=== PATIENT | female | born 1955 | race Caucasian/White ===

== ENCOUNTER 2017-05-20 18:06 | Observation (INO) | payer MEDICARE ==
[~2017-05-20] VITALS: Ht 165.1 cm; Wt 90.0 kg
[~2017-05-20 18:06] MED LIST: ABIL5TAB6 PO; ALBU6.7H INH; ALDA25TA PO; ALPR1 PO; ASPI81TA82 PO; ATOR40TA49 PO; BYST10TA2 PO; FISHOIL PO; FURO1TAB93 PO; HYDR-2768 PO; IRON325T2 PO; KEPRA PO; MONT10TA2 PO; MULTI VITAMIN; NAPR-573 PO; PRED5TAB PO; SPIRCAP INH; VENL75 PO; ZITH500T PO
[2017-05-20 18:11] VITALS: BP 128/61; PULSE 103; RESP 20; TEMP 98.7; O2SAT 95
[2017-05-20] MEDS ORDERED: SODIUM CHLOR 0.9% 1000 ML INJ 1,000 ML IV SCH (18:34)
--- NOTE | 2017-05-20 18:36 | PD ---
HPI Chief Complaint: General Weakness Time Seen by Provider: 18:36 Travel History International Travel<30 days: No Contact w/Intl Traveler<30days: No Traveled to known affect area: No History of Present Illness HPI 61-year-old female with a history of hypertension, hyperlipidemia, diabetes, CVA , COPD is brought to the emergency department by EMS for evaluation of frequent falls and weakness. The patient is lethargic but easily aroused and oriented to person and situation only. The patient states that she has had worsening weakness over the past 2-3 days. States that she has fallen several times because she is unable to stand due to the weakness. She states she did hit her head when she fell but denies loss of consciousness. She complains of mild shortness of breath as well. States that she's had a few episodes of nonbloody nonbilious emesis this morning and diarrhea. She complains of subjective fever today. Denies chest pain, lightheadedness, dizziness, abdominal pain, chills, cough or cold symptoms. Denies anticoagulation. Denies alcohol or drug use. No other complaints. PFSH Past Medical History Arthritis: Yes Asthma: Yes Anxiety: Yes Depression: No Heart Rhythm Problems: No Cancer: No Cardiovascular Problems: Yes High Cholesterol: No Chest Pain: Yes Congestive Heart Failure: No COPD: No Cerebrovascular Accident: No Endocrine: No GERD: Yes Genitourinary: No Hiatal Hernia: No Hypertension: Yes Immune Disorder: No Musculoskeletal: Yes Neurologic: Yes Psychiatric: No Reproductive: No Respiratory: Yes Migraines: No Seizures: Yes Sleep Apnea: No Triglycerides - High: Yes Ulcer: No Menopausal: Yes Past Surgical History Abdominal Surgery: No AICD: No Arteriovenous Shunt: No Cardiac Surgery: No Section: Yes (X 2) Ear Surgery: No Endocrine Surgery: No Eye Surgery: No Gynecologic Surgery: No Insulin Pump: No Joint Replacement: Yes (RT HIP) Oral Surgery: No Pacemaker: No Thoracic Surgery: No Social History Alcohol Use: Yes (OCC) Tobacco Use: No Substance Use: No Allergies-Medications (Allergen,Severity, Reaction): Coded Allergies: Dilantin (Verified Allergy, Intermediate, HIVES, 05/20/17) Reported Meds & Prescriptions Reported Meds & Active Scripts Active Active Prescriptions or Reported Medications Unobtainable Review of Systems Except as stated in HPI: all other systems reviewed are Neg Physical Exam Narrative GENERAL: Well-nourished and well-developed female patient in no acute distress. SKIN: Warm and dry. HEAD: Normocephalic and atraumatic. EYES: No injection, drainage, or hyphema noted. PERRLA. EOMI. ENT: No nasal drainage noted. Oropharynx is clear. NECK: Supple and the trachea is midline. CARDIOVASCULAR: Regular rate and rhythm. RESPIRATORY: Breath sounds are equal bilaterally with no accessory muscle use, wheezing, rhonchi, or crackles. GASTROINTESTINAL: Abdomen is soft, non-tender, and nondistended. MUSCULOSKELETAL: No obvious deformities, swelling, cyanosis, or ecchymosis is present throughout the upper and lower extremities. Patient has full range of motion without any signs of neurovascular compromise. Strength 5/5 upper extremities equal bilaterally and 4/5 lower extremities equal bilaterally. NEUROLOGICAL: Drowsy but easily aroused. Oriented to person. Normal speech. Cranial nerves are grossly intact. Data Data Last Documented VS Vital Signs Date Time Temp Pulse Resp B/P Pulse Ox O2 Delivery O2 Flow Rate FiO2 05/20/17 19:00 92 16 137/65 95 Room Air 05/20/17 18:38 2 05/20/17 18:11 98.7 Orders Complete Blood Count With Diff (05/20/17 18:34) Comprehensive Metabolic Panel (05/20/17 18:34) Prothrombin Time / Inr (Pt) (05/20/17 18:34) Act Partial Throm Time (Ptt) (05/20/17 18:34) Thyroid Stimulating Hormone (05/20/17 18:34) Urinalysis - C+S If Indicated (05/20/17 18:34) Lactic Acid Sepsis Protocol (05/20/17 18:34) Chest, Single Ap (05/20/17 18:34) Ct Brain W/O Iv Contrast(Rout) (05/20/17 18:34) Ecg Monitoring (05/20/17 18:34) Iv Access Insert/Monitor (05/20/17 18:34) Cath For Specimen (05/20/17 18:34) Oximetry (05/20/17 18:34) Sodium Chloride 0.9% Flush (Ns Flush) (05/20/17 18:45) Sodium Chlor 0.9% 1000 Ml Inj (Ns 1000 M (05/20/17 18:34) Drug Screen, Random Urine (05/20/17 18:34) Alcohol (Ethanol) (05/20/17 18:34) Urinary Catheter Insert/Apply (05/20/17 18:53) Urine Culture (05/20/17 18:55) Ceftriaxone Inj (Rocephin Inj) (05/20/17 19:45) Admit Order (Ed Use Only) (05/20/17 20:25) Labs Laboratory Tests Test 05/20/17 05/20/17 18:35 18:55 White Blood Count 10.1 TH/MM3 Red Blood Count 5.04 MIL/MM3 Hemoglobin 11.9 GM/DL Hematocrit 39.0 % Mean Corpuscular Volume 77.4 FL Mean Corpuscular Hemoglobin 23.6 PG Mean Corpuscular Hemoglobin 30.5 % Concent Red Cell Distribution Width 16.6 % Platelet Count 298 TH/MM3 Mean Platelet Volume 7.8 FL Neutrophils (%) (Auto) 68.0 % Lymphocytes (%) (Auto) 19.8 % Monocytes (%) (Auto) 6.5 % Eosinophils (%) (Auto) 4.4 % Basophils (%) (Auto) 1.3 % Neutrophils # (Auto) 6.8 TH/MM3 Lymphocytes # (Auto) 2.0 TH/MM3 Monocytes # (Auto) 0.7 TH/MM3 Eosinophils # (Auto) 0.4 TH/MM3 Basophils # (Auto) 0.1 TH/MM3 CBC Comment DIFF FINAL Differential Comment Prothrombin Time 10.1 SEC Prothromb Time International 0.9 RATIO Ratio Activated Partial 26.3 SEC Thromboplast Time Sodium Level 140 MEQ/L Potassium Level 4.0 MEQ/L Chloride Level 103 MEQ/L Carbon Dioxide Level 26.2 MEQ/L Anion Gap 11 MEQ/L Blood Urea Nitrogen 15 MG/DL Creatinine 1.22 MG/DL Estimat Glomerular Filtration 45 ML/MIN Rate Random Glucose 108 MG/DL Lactic Acid Level 3.3 mmol/L Calcium Level 8.3 MG/DL Total Bilirubin 0.3 MG/DL Aspartate Amino Transf 17 U/L (AST/SGOT) Alanine Aminotransferase 22 U/L (ALT/SGPT) Alkaline Phosphatase 96 U/L Total Protein 7.2 GM/DL Albumin 3.4 GM/DL Thyroid Stimulating Hormone 1.220 uIU/ML 3rd Gen Ethyl Alcohol Level LESS THAN 3 MG/DL Urine Color YELLOW Urine Turbidity HAZY Urine pH 8.0 Urine Specific [place] 1.011 Urine Protein TRACE mg/dL Urine Glucose (UA) NEG mg/dL Urine Ketones NEG mg/dL Urine Occult Blood NEG Urine Nitrite POS Urine Bilirubin NEG Urine Urobilinogen LESS THAN 2.0 MG/DL Urine Leukocyte Esterase LARGE Urine RBC 1 /hpf Urine WBC 27 /hpf Urine Bacteria MANY /hpf Urine Hyaline Casts 1 /lpf Urine Mucus FEW /lpf Microscopic Urinalysis Comment CATH-CULTURE IND MDM Medical Decision Making Medical Screen Exam Complete: Yes Emergency Medical Condition: Yes Differential Diagnosis Intracranial hemorrhage versus sepsis versus dehydration versus electrolyte abnormality versus CVA versus UTI Narrative Course 61-year-old female presents to the emergency department for evaluation of weakness with frequent falls over the past several days. Patient is afebrile, she is tachycardic with heart rate of 103 bpm. Otherwise vital signs within normal limits. No focal neurologic deficits. She does have weakness in the lower extremities that is equal bilaterally and is noted to be drowsy. IV access is obtained, labs and been drawn and sent. Patient is placed on cardiac telemetry and pulse oximetry monitoring. Patient is administered IV fluids. CBC is unremarkable. CMP shows renal insufficiency with a creatinine of 1.22, GFR 45. Lactic acid is 3.3. Urinalysis shows positive nitrites, large leukocyte esterase, 27 white blood cells, many bacteria and few mucus. Chest x-ray is unremarkable. Head CT is unremarkable. Patient is reassessed and noted to still be drowsy and weak. She is unable to ambulate safely. She is administered IV Rocephin and fluids. Patient will be kept in observation for urinary tract infection and weakness. She will likely need placement to a [facility]dc facility for rehab. Physician Communication Physician Communication I spoke with Dr. Luke [facility] who agrees to keep the patient under observation. Diagnosis Primary Impression: UTI (urinary tract infection) Qualified Code: N39.0 - Urinary tract infection without hematuria, site unspecified Additional Impressions: Generalized weakness Multiple falls Admitting Information Admitting Physician Requests: Observation Scripts Unable to Obtain Active Prescriptions or Reported Meds Sarah Good May 20, 2017 18:36
[2017-05-20 18:38] VITALS: BP 138/64; PULSE 99; O2SAT 98
[2017-05-20] MEDS ORDERED: SODIUM CHLORIDE 0.9% FLUSH 5 ML FLUSH IV FLUSH PRN (18:45)
[2017-05-20 19:00] VITALS: BP 137/65; PULSE 92; RESP 16; O2SAT 95
--- NOTE | 2017-05-20 19:03 | RADRPT ---
EXAM DATE/TIME: 05/20/2017 18:35 [facility] COMPARISON: CHEST SINGLE AP, August 12, 2013, 15:26. INDICATIONS : Syncope, patient keeps falling MEDICAL HISTORY : Unknown SURGICAL HISTORY : Unknown ENCOUNTER: Initial ACUITY: 1 day PAIN SCORE: 5/10 LOCATION: Bilateral chest FINDINGS: A single view of the chest demonstrates the lungs to be symmetrically aerated without evidence of mas s, infiltrate or effusion. The cardiomediastinal contours are unremarkable. Osseous structures are intact. CONCLUSION: No acute disease. Nirav Ortega Jr., MD on May 20, 2017 at 19:01 Board Certified Radiologist. This report was verified electronically.
[2017-05-20 19:10] LABS: AUTOMATED NEUTROPHIL # 6.8 TH/MM3 (1.8-7.7); BASOPHIL # 0.1 TH/MM3 (0-0.2); BASOPHIL % 1.3 % (0.0-2.0); EOSINOPHIL # 0.4 TH/MM3 (0-0.4); EOSINOPHIL % 4.4 % (0.0-4.0); HEMO FLAGS DIFF FINAL; LYMPH % 19.8 % (9.0-44.0); MEAN CELL VOLUME 77.4 FL (80.0-100.0); MEAN CORPUSCULAR HEMOGLOBIN 23.6 PG (27.0-34.0); MEAN CORPUSCULAR HGB CONC 30.5 % (32.0-36.0); MONO % 6.5 % (0.0-8.0); PLATELET COUNT 298 TH/MM3 (150-450); RED BLOOD COUNT 5.04 MIL/MM3 (4.00-5.30); RED CELL DISTRIBUTION WIDTH 16.6 % (11.6-17.2); WHITE BLOOD COUNT 10.1 TH/MM3 (4.0-11.0)
[2017-05-20 19:25] LABS: BACTERIA, URINE MANY /hpf; BLOOD, URINE NEG (NEG); GLUCOSE,URINE NEG (NEG); HYALINE CAST, URINE 1 /lpf (RARE); KETONE, URINE NEG (NEG); MUCUS URINE FEW /lpf (OCC); URINE COLOR YELLOW (YELLW/STRAW)
[2017-05-20 19:26] LABS: COMMENT (UR) CATH-CULTURE IND; CULTURE IF INDICATED CATH CULTURE IND; NITRITE,URINE POS (NEG)
[2017-05-20 19:28] LABS: ANION GAP 11 MEQ/L (5-15); AST (GOT) 17 U/L (15-37); BICARBONATE 26.2 MEQ/L (21.0-32.0); BLOOD UREA NITROGEN 15 MG/DL (7-18); CHLORIDE 103 MEQ/L (98-107); GLOMERULAR FILTRATION RATE 45 ML/MIN (>89); SODIUM (NA) 140 MEQ/L (136-145)
[2017-05-20 19:29] LABS: ALT (GPT) 22 U/L (10-53)
--- NOTE | 2017-05-20 19:30 | RADRPT ---
EXAM DATE/TIME: 05/20/2017 19:13 [facility] COMPARISON: CT BRAIN W/O CONTRAST, August 12, 2013, 16:20. INDICATIONS : Generalized weakness. RADIATION DOSE: 48.10 CTDIvol (mGy) MEDICAL HISTORY : Cardiovascular disease. Seizures. Hypertension. SURGICAL HISTORY : Spinal fusion ENCOUNTER: Initial ACUITY: 1 day PAIN SCALE: 0/10 LOCATION: cranial TECHNIQUE: Multiple contiguous axial images were obtained of the head. Using automated exposure control and adj ustment of the mA and/or kV according to patient size, radiation dose was kept as low as reasonably a chievable to obtain optimal diagnostic quality images. DICOM format image data is available electro nically for review and comparison. FINDINGS: CEREBRUM: Atrophy. The ventricles are normal for age. No evidence of midline shift, mass lesion, hemorrhage or acute infarction. No extra-axial fluid collections are seen. POSTERIOR FOSSA: The cerebellum and brainstem are intact. The 4th ventricle is midline. The cerebellopontine angle i s unremarkable. EXTRACRANIAL: The visualized portion of the orbits is intact. SKULL: The calvaria is intact. No evidence of skull fracture. CONCLUSION: No acute disease. Nirav Ortega Jr., MD on May 20, 2017 at 19:28 Board Certified Radiologist. This report was verified electronically.
[2017-05-20 19:39] LABS: ALKALINE PHOSPHATASE 96 U/L (45-117); TOTAL BILIRUBIN ADULT 0.3 MG/DL (0.2-1.0)
[2017-05-20] MEDS ORDERED: cefTRIAXone INJ 1,000 MG in SODIUM CHLORIDE 0.9% INJ 100 ML IV ONE (19:45)
[2017-05-20 19:58] LABS: APTT (PATIENT) 26.3 SEC (24.3-30.1); INTERNATIONAL NORMALIZED RATIO 0.9 RATIO; PROTHROMBIN TIME - PATIENT 10.1 SEC (9.8-11.6)
[2017-05-20] MEDS ORDERED: LACTULOSE SYRUP 20 GM/30 ML CUP PO PRN (20:45)
[2017-05-20] MEDS ORDERED: SENNOSIDES 8.6 MG TAB PO PRN (20:45)
[2017-05-20] MEDS ORDERED: MAGNESIUM HYDROXIDE SUSP 30 ML CUP PO PRN (20:45)
[2017-05-20] MEDS ORDERED: ACETAMINOPHEN 325 MG TAB PO PRN (20:45)
[2017-05-20] MEDS ORDERED: ONDANSETRON HCL 4 MG/2 ML VIAL IVP PRN (20:45)
[2017-05-20] MEDS ORDERED: ACETAMINOPHEN/HYDROcodone 325 MG/7.5 MG TAB PO PRN (20:45)
[2017-05-20] MEDS ORDERED: BISACODYL 10 MG SUPP RECTAL PRN (20:45)
[2017-05-20] MEDS ORDERED: SODIUM CHLORIDE 0.9% FLUSH 10 ML FLUSH IV FLUSH PRN (20:45)
[2017-05-20 20:55] LABS: LACTIC ACID GHOST NOT REPORTABLE
[2017-05-20] MEDS ORDERED: DOCUSATE SODIUM 50 MG/SENNA 8.6 MG TAB PO SCH (21:00)
[2017-05-20] MEDS: SODIUM CHLORIDE 0.9% FLUSH 10 ML FLUSH IV FLUSH SCH (21:00)
[2017-05-20] MEDS: SODIUM CHLOR 0.9% 1000 ML INJ 1,000 ML IV SCH (22:01)
[2017-05-20 23:00] VITALS: BP 125/58; PULSE 96; RESP 16; O2SAT 99
--- NOTE | 2017-05-20 23:32 | HHI.HP ---
HPI Service [facility] Primary Care Physician No Primary Care Physician Admission Diagnosis UTI, Generalized Weakness, Multiple Falls Diagnoses: (1) UTI (urinary tract infection) Diagnosis: Principal (2) Renal insufficiency Diagnosis: Principal (3) Lactic acidosis Diagnosis: Principal (4) Generalized weakness Diagnosis: Principal Travel History International Travel<30 Days: No Contact w/Intl Traveler <30 Da: No Traveled to Known Affected Are: No History of Present Illness This is a 61-year-old female with a PMH of HTN, Anxiety, Hyperlipidemia, COPD, DM and h/o CVA was brought to the ER by EMS secondary to generalized weakness and recurrent falls x2 days and is unable to ambulate. Denies LOC but believes she hit her head during one of her falls. No fever, chills, cough or sick contacts. On arrival, BP 128/61, HR 13, O2 sat 95% on RA, Afebrile. Creatinine 1.22, previously 0.90 on 08/14/13. Lactic Acid 3.3. UA positive for UTI. CXR with no acute findings. CT Head negative. S/p Rocephin IV in ER. Review of Systems Except as stated in HPI: all other systems reviewed are Neg ROS: 14 point review of systems otherwise negative. Past Family Social History Past Medical History PMH: HTN, Anxiety, Hyperlipidemia, COPD, DM and h/o CVA Past Surgical History PAST SURGICAL HISTORY: Right Hip Surgery, Allergies: Coded Allergies: Dilantin (Verified Allergy, Intermediate, HIVES, 05/20/17) Family History PAST FAMILY HISTORY: Reviewed. No h/o DM or CAD Social History PAST SOCIAL HISTORY: Occasional alcohol use, negative for tobacco or drugs. Physical Exam Vital Signs Vital Signs Date Time Temp Pulse Resp B/P Pulse Ox O2 Delivery O2 Flow Rate FiO2 05/20/17 19:00 92 16 137/65 95 Room Air 05/20/17 18:38 99 138/64 98 Nasal Cannula 2 05/20/17 18:11 98.7 103 20 128/61 95 Physical Exam PE: GENERAL: Middle-aged white female in no acute distress, appears older than stated age. HEENT: PERRLA, EOMI. No scleral icterus or conjunctival pallor. No lid lag or facial droop. CARDIOVASCULAR: Regular rate and rhythm. No obvious murmurs to auscultation. No chest tenderness to palpation. RESPIRATORY: No obvious rhonchi or wheezing. Clear to auscultation. Breath sounds equal bilaterally. GASTROINTESTINAL: Abdomen soft, non-tender, nondistended. BS normal. MUSCULOSKELETAL: Extremities without clubbing, cyanosis, or edema. No obvious deformities. NEUROLOGICAL: Slightly lethargic, but arousable. No focal neurologic deficits. Moving both upper and lower extremities spontaneously. Laboratory Laboratory Tests Test 05/20/17 05/20/17 05/20/17 18:35 18:55 22:10 White Blood Count 10.1 Red Blood Count 5.04 Hemoglobin 11.9 Hematocrit 39.0 Mean Corpuscular Volume 77.4 Mean Corpuscular Hemoglobin 23.6 Mean Corpuscular Hemoglobin 30.5 Concent Red Cell Distribution Width 16.6 Platelet Count 298 Mean Platelet Volume 7.8 Neutrophils (%) (Auto) 68.0 Lymphocytes (%) (Auto) 19.8 Monocytes (%) (Auto) 6.5 Eosinophils (%) (Auto) 4.4 Basophils (%) (Auto) 1.3 Neutrophils # (Auto) 6.8 Lymphocytes # (Auto) 2.0 Monocytes # (Auto) 0.7 Eosinophils # (Auto) 0.4 Basophils # (Auto) 0.1 CBC Comment DIFF FINAL Differential Comment Prothrombin Time 10.1 Prothromb Time International 0.9 Ratio Activated Partial 26.3 Thromboplast Time Sodium Level 140 Potassium Level 4.0 Chloride Level 103 Carbon Dioxide Level 26.2 Anion Gap 11 Blood Urea Nitrogen 15 Creatinine 1.22 Estimat Glomerular Filtration 45 Rate Random Glucose 108 Lactic Acid Level 3.3 0.8 Calcium Level 8.3 Total Bilirubin 0.3 Aspartate Amino Transf 17 (AST/SGOT) Alanine Aminotransferase 22 (ALT/SGPT) Alkaline Phosphatase 96 Total Protein 7.2 Albumin 3.4 Thyroid Stimulating Hormone 1.220 3rd Gen Ethyl Alcohol Level LESS THAN 3 Urine Color YELLOW Urine Turbidity HAZY Urine pH 8.0 Urine Specific [place] 1.011 Urine Protein TRACE Urine Glucose (UA) NEG Urine Ketones NEG Urine Occult Blood NEG Urine Nitrite POS Urine Bilirubin NEG Urine Urobilinogen LESS THAN 2.0 Urine Leukocyte Esterase LARGE Urine RBC 1 Urine WBC 27 Urine Bacteria MANY Urine Hyaline Casts 1 Urine Mucus FEW Microscopic Urinalysis Comment CATH-CULTURE IND Date/Time Procedure Status Source Growth 05/20/17 18:55 Urine Culture Received Urine Clean Catch Pending Result Diagram: 05/20/17183405/20/171834 Assessment and Plan Problem List: (1) UTI (urinary tract infection) ICD Code: N39.0 Status: Acute (2) Lactic acidosis ICD Code: E87.2 Status: Acute (3) Renal insufficiency ICD Code: N28.9 Status: Acute (4) Generalized weakness ICD Code: R53.1 Status: Acute Assessment and Plan A/P: 1. UTI: U/a w/ UTI, s/p IV Rocephin in ER, will follow up cultures, continue IV Abx. 2. Renal Insufficiency: Creatinine 1.22, previously 0.90 on 08/14/13, U/a positive for UTI, IVF for hydration, continue w/ IV Abx, repeat labs in am. 3. Generalized Weakness: w/ recurrent falls and gait instability, unsafe discharge home. Will place consult for Case Management to assist w/ placement. PT for eval/tx. 4. Lactic Acidosis: Lactate 3.3, likely secondary to dehydration. Repeat Lactate now normalized at 0.8. Continue w/ IVF 5. DVT Prophylaxis: SCD/Teds. 6. Social work for d/c planning as needed. 7. Case discussed w/ ER physician at length. Problem Qualifiers (1) UTI (urinary tract infection): Qualified Code: N39.0 - Urinary tract infection without hematuria, site unspecified Norma Luke MD May 20, 2017 23:32
[2017-05-21 01:09] VITALS: BP 110/56; PULSE 92; RESP 18; TEMP 98.5; O2SAT 97
[2017-05-21] MEDS ORDERED: GLUCAGON 1 MG/ML VIAL OTHER PRN (02:45)
[2017-05-21] MEDS ORDERED: DEXTROSE 50% IN WATER 50 ML VIAL(D50) IV PRN (02:45)
[2017-05-21 03:29] VITALS: BP 119/59; PULSE 94; RESP 16; TEMP 98.5; O2SAT 98
[2017-05-21 05:09] LABS: AMPHETAMINE, URINE NEG (NEG); BARBITURATES, URINE NEG (NEG); COCAINE, URINE NEG (NEG)
[2017-05-21] MEDS: SODIUM CHLOR 0.9% 1000 ML INJ 1,000 ML IV SCH ×2 (05:14→18:30)
[2017-05-21] MEDS: INSULIN ASPART SUPPLEMENTAL SCALE SQ SCH ×4 (06:23→20:27)
--- NOTE | 2017-05-21 08:07 | HHI.PR ---
Subjective Remarks Follow up for UTI, weakness, falls. The patient reports continued generalized weakness today and subjective fevers/chills. She states she's fallen 4x this week which is much more frequent than her falls in the past. She denies any lightheadedness or dizziness prior to the falls. She states her legs "just give out". She started having dysuria and subjective fevers 2-3 days ago. She also reports no BM in 3 days which is unusual for her. She denies any specific abdominal pains. She states she has been eating normally. She denies any other medical complaints at this time. Objective Vitals Vital Signs Date Time Temp Pulse Resp B/P Pulse Ox O2 Delivery O2 Flow Rate FiO2 05/21/17 03:29 98.5 94 16 119/59 98 05/21/17 01:09 98.5 92 18 110/56 97 05/21/17 01:00 18 05/20/17 23:00 96 16 125/58 99 Room Air 05/20/17 19:00 92 16 137/65 95 Room Air 05/20/17 18:38 99 138/64 98 Nasal Cannula 2 05/20/17 18:11 98.7 103 20 128/61 95 I/O 05/20/17 05/20/17 05/20/17 05/21/17 05/21/17 05/21/17 07:00 15:00 23:00 07:00 15:00 23:00 Intake Total 705 ml Output Total 800 ml Balance -95 ml Intake IV Total 705 ml Output Urine Total 800 ml Result Diagram: 05/20/17183405/20/171834 Imaging Last Impressions Head CT 05/20/171833 Signed Impressions: Service Date/Time: Saturday, May 20, 2017 19:13 - CONCLUSION: No acute disease. Nirav Ortega Jr., MD Chest X-Ray 05/20/171833 Signed Impressions: Service Date/Time: Saturday, May 20, 2017 18:35 - CONCLUSION: No acute disease. Nirav Ortega Jr., MD Objective Remarks GENERAL: Well-nourished, well-developed female patient in [facility]. SKIN: Warm and dry. No rash. HEAD: Normocephalic. Atraumatic. EYES: Pupils equal and round. No scleral icterus. No injection or drainage. ENT: No nasal bleeding or discharge. Mucous membranes pink and moist. NECK: Supple. Trachea midline. CARDIOVASCULAR: Regular rate and rhythm. S1, S2 noted. No murmur appreciated. RESPIRATORY: No accessory muscle use. Clear to auscultation. Breath sounds equal bilaterally. GASTROINTESTINAL: Abdomen soft, non-tender, nondistended. Normoactive bowel sounds x4. MUSCULOSKELETAL: No obvious deformities. Extremities without clubbing, cyanosis , or edema. NEUROLOGICAL: Awake and alert. No obvious cranial nerve deficits. Motor grossly within normal limits. 5/5 muscle strength in bilateral upper extremities , 4/5 strength bilateral lower extremities. Normal speech. PSYCHIATRIC: Appropriate mood and affect; insight and judgment normal. Medications and IVs Current Medications Medications (Trade) Dose Ordered Sig/Enedelia Route Start Time Stop Time Status Last Admin Ceftriaxone Sodium 1000 mg/ Sodium Chloride 100 ml @ 200 mls/hr Q24H IV 05/21/17 21:00 (NS 1000 ml Inj) 1,000 ml @ 100 mls/hr Q10H IV 05/20/17 21:00 05/20/17 22:01 (NS Flush) 2 ml UNSCH PRN IV FLUSH 05/20/17 20:45 (NS Flush) 2 ml BID IV FLUSH 05/20/17 21:00 (Zofran Inj) 4 mg Q6H PRN IVP 05/20/17 20:45 (Tylenol) 650 mg Q6H PRN PO 05/20/17 20:45 (Belk 5-325 Mg) 1 tab Q4H PRN PO 05/20/17 20:45 05/21/17 00:00 (Belk 7.5-325 Mg) 1 tab Q4H PRN PO 05/20/17 20:45 (Bianca-Colace) 1 tab BID PO 05/20/17 21:00 (Milk Of Magnesia Liq) 30 ml Q12H PRN PO 05/20/17 20:45 (Senokot) 17.2 mg Q12H PRN PO 05/20/17 20:45 (Dulcolax Supp) 10 mg DAILY PRN RECTAL 05/20/17 20:45 (Lactulose Liq) 30 ml DAILY PRN PO 05/20/17 20:45 (D50w (Vial) Inj) 50 ml UNSCH PRN IV 05/21/17 02:45 (Glucagon Inj) 1 mg UNSCH PRN OTHER 05/21/17 02:45 A/P Problem List: (1) UTI (urinary tract infection) ICD Code: N39.0 Status: Acute (2) Lactic acidosis ICD Code: E87.2 Status: Acute (3) Renal insufficiency ICD Code: N28.9 Status: Acute (4) Generalized weakness ICD Code: R53.1 Status: Acute Assessment and Plan 61-year-old female with a PMH of HTN, Anxiety, Hyperlipidemia, COPD, DM and h/o CVA was brought to the ER by EMS secondary to generalized weakness and recurrent falls x2 days and is unable to ambulate. UTI: U/a w/ UTI. Continue with IV Rocephin. Follow urine culture. Renal Insufficiency: Creatinine 1.22, previously 0.90 on 08/14/13. U/a positive for UTI. Give IVF for hydration. Repeat labs today pending. Generalized Weakness: w/ recurrent falls and gait instability, unsafe discharge home. Suspect multifactorial with chronic deconditioning and acute infection. Consult Case Management to assist w/ placement. PT for eval/tx. Lactic Acidosis: Lactate 3.3, likely secondary to dehydration. Repeat Lactate now normalized at 0.8. Continue w/ IVF. Constipation: no BM x3days. Will start on Bianca-Colace 2 tabs po bid. MOM prn. DVT Prophylaxis: SCD/Teds. Problem Qualifiers (1) UTI (urinary tract infection): Qualified Code: N39.0 - Urinary tract infection without hematuria, site unspecified Jeannette Montes De Oca PA-C May 21, 2017 8:07 am
[2017-05-21 08:28] VITALS: BP 144/62; PULSE 92; RESP 18; TEMP 98.3; O2SAT 92
[2017-05-21 09:37] LABS: AUTOMATED NEUTROPHIL # 5.6 TH/MM3 (1.8-7.7); BASOPHIL # 0.1 TH/MM3 (0-0.2); BASOPHIL % 1.5 % (0.0-2.0); EOSINOPHIL # 0.6 TH/MM3 (0-0.4); EOSINOPHIL % 6.4 % (0.0-4.0); HEMATOCRIT 34.8 % (35.0-46.0); HEMO FLAGS DIFF FINAL; LYMPH % 20.4 % (9.0-44.0); LYMPHOCYTE # 1.8 TH/MM3 (1.0-4.8); MEAN CORPUSCULAR HEMOGLOBIN 23.7 PG (27.0-34.0); MEAN CORPUSCULAR HGB CONC 30.8 % (32.0-36.0); MONO % 7.8 % (0.0-8.0); NEUT % 63.9 % (16.0-70.0); PLATELET COUNT 277 TH/MM3 (150-450); RED BLOOD COUNT 4.52 MIL/MM3 (4.00-5.30); RED CELL DISTRIBUTION WIDTH 16.4 % (11.6-17.2); WHITE BLOOD COUNT 8.7 TH/MM3 (4.0-11.0)
[2017-05-21] MEDS: SODIUM CHLORIDE 0.9% FLUSH 10 ML FLUSH IV FLUSH SCH ×2 (09:59→20:27)
[2017-05-21 10:10] LABS: ANION GAP 7 MEQ/L (5-15); AST (GOT) 12 U/L (15-37); BICARBONATE 28.3 MEQ/L (21.0-32.0); BLOOD UREA NITROGEN 12 MG/DL (7-18); CHLORIDE 108 MEQ/L (98-107); GLOMERULAR FILTRATION RATE 59 ML/MIN (>89); SODIUM (NA) 143 MEQ/L (136-145)
[2017-05-21 10:14] LABS: ALKALINE PHOSPHATASE 80 U/L (45-117); ALT (GPT) 17 U/L (10-53); TOTAL BILIRUBIN ADULT 0.2 MG/DL (0.2-1.0)
[2017-05-21] MEDS: DOCUSATE SODIUM 50 MG/SENNA 8.6 MG TAB PO SCH ×2 (10:38→20:27)
[2017-05-21] MEDS: ACETAMINOPHEN/HYDROcodone 325 MG/5 MG TAB PO PRN ×2 (10:38)
--- NOTE | 2017-05-21 11:52 | EKG ---
Date Performed: 05/20/2017 Time Performed: 18:28:08 PTAGE: 61 years EKG: SINUS TACHYCARDIA INCOMPLETE RIGHT BUNDLE BRANCH BLOCK ST DEVIATION AND MODERATE T-WAVE ABN ORMALITY, CONSIDER ANTERIOR ISCHEMIA Since previous tracing, no significant change noted ABNORMAL ECG PREVIOUS TRACING : 08/13/2013 09.53 DOCTOR: Roshan Mosquera Interpretating Date/Time 05/21/2017 11:50:58
[2017-05-21 12:19] VITALS: BP 132/65; PULSE 97; RESP 20; TEMP 98.2; O2SAT 95
[2017-05-21 20:00] VITALS: BP 158/76; PULSE 66; RESP 18; TEMP 98; O2SAT 97
[2017-05-21] MEDS ORDERED: cefTRIAXone INJ 1,000 MG in SODIUM CHLORIDE 0.9% INJ 100 ML IV SCH (21:00)
[2017-05-22] VITALS: BP 160/79; PULSE 78; RESP 18; TEMP 97.8; O2SAT 98
[2017-05-22 04:30] VITALS: BP 138/65; PULSE 92; RESP 18; TEMP 98.5; O2SAT 97
[2017-05-22] MEDS: INSULIN ASPART SUPPLEMENTAL SCALE SQ SCH ×4 (05:55→20:26)
[2017-05-22] MEDS: SODIUM CHLOR 0.9% 1000 ML INJ 1,000 ML IV SCH ×2 (05:56→13:18)
[2017-05-22 07:32] VITALS: BP 137/64; PULSE 92; RESP 22; TEMP 98.6; O2SAT 95
[2017-05-22 07:39] LABS: AUTOMATED NEUTROPHIL # 5.3 TH/MM3 (1.8-7.7); BASOPHIL # 0.1 TH/MM3 (0-0.2); BASOPHIL % 1.1 % (0.0-2.0); EOSINOPHIL # 0.7 TH/MM3 (0-0.4); EOSINOPHIL % 8.5 % (0.0-4.0); HEMATOCRIT 33.1 % (35.0-46.0); HEMO FLAGS DIFF FINAL; LYMPH % 19.8 % (9.0-44.0); LYMPHOCYTE # 1.7 TH/MM3 (1.0-4.8); MEAN CELL VOLUME 77.5 FL (80.0-100.0); MEAN CORPUSCULAR HEMOGLOBIN 24.5 PG (27.0-34.0); MEAN CORPUSCULAR HGB CONC 31.6 % (32.0-36.0); MONO % 7.9 % (0.0-8.0); NEUT % 62.7 % (16.0-70.0); PLATELET COUNT 250 TH/MM3 (150-450); RED BLOOD COUNT 4.26 MIL/MM3 (4.00-5.30); RED CELL DISTRIBUTION WIDTH 15.7 % (11.6-17.2); WHITE BLOOD COUNT 8.4 TH/MM3 (4.0-11.0)
[2017-05-22 08:02] LABS: BICARBONATE 25.2 MEQ/L (21.0-32.0); POTASSIUM 3.8 MEQ/L (3.5-5.1)
--- NOTE | 2017-05-22 09:45 | HHI.PR ---
Subjective Remarks Follow up for UTI, weakness, falls. The patient reports feeling slightly better today however still weak. Denies any fevers/chills, nausea/vomiting, or abdominal pains. Discussed PT's recommendation for rehab, patient adamantly does not want to go to rehab, she wants to go home but is agreeable to [facility]. When asked why she doesn't want to go to rehab, she states "been there, done that, and it didn't work". Objective Vitals Vital Signs Date Time Temp Pulse Resp B/P Pulse Ox O2 Delivery O2 Flow Rate FiO2 05/22/17 07:32 98.6 92 22 137/64 95 05/22/17 04:30 98.5 92 18 138/65 97 05/22/17 00:00 97.8 78 18 160/79 98 05/21/17 20:00 98.0 66 18 158/76 97 05/21/17 12:19 98.2 97 20 132/65 95 I/O 05/21/17 05/21/17 05/21/17 05/22/17 05/22/17 05/22/17 07:00 15:00 23:00 07:00 15:00 23:00 Intake Total 705 ml Output Total 800 ml 600 ml Balance -95 ml -600 ml Intake IV Total 705 ml Output Urine Total 800 ml 600 ml Result Diagram: 05/22/17 0655 05/22/17 0655 Imaging Last Impressions Head CT 05/20/171833 Signed Impressions: Service Date/Time: Saturday, May 20, 2017 19:13 - CONCLUSION: No acute disease. Nirav Ortega Jr., MD Chest X-Ray 05/20/171833 Signed Impressions: Service Date/Time: Saturday, May 20, 2017 18:35 - CONCLUSION: No acute disease. Nirav Ortega Jr., MD Objective Remarks GENERAL: Well-nourished, well-developed female patient in [facility]. SKIN: Warm and dry. No rash. HEENT: Normocephalic. Atraumatic. Pupils equal and round. Mucous membranes pink and moist. NECK: Supple. Trachea midline. CARDIOVASCULAR: Regular rate and rhythm. S1, S2 noted. No murmur appreciated. RESPIRATORY: No accessory muscle use. Clear to auscultation. Breath sounds equal bilaterally. GASTROINTESTINAL: Abdomen soft, non-tender, nondistended. Normoactive bowel sounds x4. MUSCULOSKELETAL: No obvious deformities. Extremities without clubbing, cyanosis , or edema. NEUROLOGICAL: Awake and alert. No obvious cranial nerve deficits. Motor grossly within normal limits. 5/5 muscle strength in bilateral upper extremities , 4/5 strength bilateral lower extremities. Normal speech. PSYCHIATRIC: Appropriate mood and affect; insight and judgment normal. Medications and IVs Current Medications Medications (Trade) Dose Ordered Sig/Enedelia Route Start Time Stop Time Status Last Admin Ceftriaxone Sodium 1000 mg/ Sodium Chloride 100 ml @ 200 mls/hr Q24H IV 05/21/17 21:00 05/21/17 20:28 (NS 1000 ml Inj) 1,000 ml @ 100 mls/hr Q10H IV 05/20/17 21:00 05/22/17 05:56 (NS Flush) 2 ml UNSCH PRN IV FLUSH 05/20/17 20:45 (NS Flush) 2 ml BID IV FLUSH 05/20/17 21:00 (Zofran Inj) 4 mg Q6H PRN IVP 05/20/17 20:45 (Tylenol) 650 mg Q6H PRN PO 05/20/17 20:45 (Motley 5-325 Mg) 1 tab Q4H PRN PO 05/20/17 20:45 05/21/17 10:38 (Motley 7.5-325 Mg) 1 tab Q4H PRN PO 05/20/17 20:45 05/21/17 20:28 (Milk Of Magnesia Liq) 30 ml Q12H PRN PO 05/20/17 20:45 (Senokot) 17.2 mg Q12H PRN PO 05/20/17 20:45 (Dulcolax Supp) 10 mg DAILY PRN RECTAL 05/20/17 20:45 (Lactulose Liq) 30 ml DAILY PRN PO 05/20/17 20:45 (D50w (Vial) Inj) 50 ml UNSCH PRN IV 05/21/17 02:45 (Glucagon Inj) 1 mg UNSCH PRN OTHER 05/21/17 02:45 (Bianca-Colace) 2 tab BID PO 05/21/17 09:00 05/21/17 20:27 A/P Problem List: (1) UTI (urinary tract infection) ICD Code: N39.0 Status: Acute (2) Lactic acidosis ICD Code: E87.2 Status: Acute (3) Renal insufficiency ICD Code: N28.9 Status: Acute (4) Generalized weakness ICD Code: R53.1 Status: Acute Assessment and Plan 61-year-old female with a PMH of HTN, Anxiety, Hyperlipidemia, COPD, DM and h/o CVA was brought to the ER by EMS secondary to generalized weakness and recurrent falls x2 days and is unable to ambulate. UTI: U/a w/ UTI. Continue with IV Rocephin. Urine culture with proteus mirabilis, pansensitive. Will discharge on Cipro. ROBBY: Creatinine 1.22, previously 0.90 on 08/14/13. U/a positive for UTI. Give IVF for hydration. Repeat labs showed much improvement, Cr 0.68. Resolved. Generalized Weakness: w/ recurrent falls and gait instability, unsafe discharge home. Suspect multifactorial with chronic deconditioning and acute infection. Consult PT, recommends rehab however patient adamantly refuses, wants to go home, also does not qualify for rehab with observation status. Will arrange C. Consult Case Management to assist with discharge planning. Lactic Acidosis: Lactate 3.3, likely secondary to dehydration. Repeat Lactate now normalized at 0.8. Continue w/ IVF. Constipation: no BM x3days. Started on Bianca-Colace 2 tabs po bid. MOM prn. DVT Prophylaxis: SCD/Teds. Discharge Planning Repeat PT evaluation today. Likely discharge with HHC. 1330hrs: Case management has discussed discharge planning with the patient. The patient still adamantly refuses SNF placement, and does not qualify for SNF placement at this time. Will arrange HHC and discharge home. Discharge patient to home with [facility] Condition on discharge: Improved Heart Healthy Diet as tolerated Ad Anahy activity Rx written: Cipro 500mg po bid x7days Follow-up with primary care physician within 1 week Problem Qualifiers (1) UTI (urinary tract infection): Qualified Code: N39.0 - Urinary tract infection without hematuria, site unspecified Jeannette Montes De Oca PA-C May 22, 2017 09:45
[2017-05-22] MEDS ORDERED: CIPR500T2 PO (09:47)
[2017-05-22] MEDS ORDERED: SENN1TAB PO (09:47)
--- NOTE | 2017-05-22 09:47 | HHI.DCPOC ---
Discharge Care Plan Diagnosis: (1) UTI (urinary tract infection) (2) Renal insufficiency (3) Generalized weakness Goals to Promote Your Health * To prevent worsening of your condition and complications * To maintain your health at the optimal level Directions to Meet Your Goals Take your medications as prescribed Follow your dietary instruction Follow activity as directed Keep your appointments as scheduled Take your immunizations and boosters as scheduled If your symptoms worsen call your PCP, if no PCP go to Urgent Care Center or Emergency Room Smoking is Dangerous to Your Health. Avoid second hand smoke Call the 24-hour hour crisis hotline for domestic abuse at Jeannette Montes De Oca PA-C May 22, 2017 9:47 am
[2017-05-22] MEDS: DOCUSATE SODIUM 50 MG/SENNA 8.6 MG TAB PO SCH ×2 (10:52→20:23)
[2017-05-22] MEDS: SODIUM CHLORIDE 0.9% FLUSH 10 ML FLUSH IV FLUSH SCH ×2 (10:53→20:24)
[2017-05-22 11:38] VITALS: BP 139/63; PULSE 92; RESP 22; TEMP 98.2; O2SAT 96
--- NOTE | 2017-05-22 13:29 | HHI.FF ---
Face to Face Verification Diagnosis: (1) UTI (urinary tract infection) (2) Renal insufficiency (3) Generalized weakness (4) Multiple falls Physical Therapy Order: Evaluate and Treat, Improve ambulation, Strength and gait training Home Health Nursing Order: Medical education Signs/symptoms of disease process Nursing assessment with vital signs I have seen patient Carlene Bowen Duty on 05/22/17. My clinical findings support the need for the requested home health care services because: Ltd mobility - disease progression Deconditioned w/ increased weakness Limited ability to care for self High risk of falls I certify that my clinical findings support that this patient is homebound because: Unsteady gait/balance Unsafe to leave home unassisted Unable to use public transportation Jeannette Montes De Oca PA-C May 22, 2017 13:29 Charlotte Erickson MD May 22, 2017 19:10
[2017-05-22 15:11] VITALS: BP 141/66; PULSE 93; RESP 22; TEMP 98.8; O2SAT 96
[2017-05-22 19:30] VITALS: BP 118/58; PULSE 66; RESP 18; TEMP 98.1; O2SAT 97
[2017-05-22] MEDS: CIPROFLOXACIN 500 MG TAB PO SCH (20:23)
[2017-05-23 00:10] VITALS: BP 127/59; PULSE 84; RESP 18; TEMP 98; O2SAT 98
[2017-05-23] MEDS: INSULIN ASPART SUPPLEMENTAL SCALE SQ SCH (06:01)
[2017-05-23 08:00] VITALS: BP 165/67; PULSE 93; RESP 22; TEMP 98.8; O2SAT 93
[2017-05-23] MEDS: DOCUSATE SODIUM 50 MG/SENNA 8.6 MG TAB PO SCH (08:14)
[2017-05-23] MEDS: CIPROFLOXACIN 500 MG TAB PO SCH (08:14)
[2017-05-23] MEDS: SODIUM CHLORIDE 0.9% FLUSH 10 ML FLUSH IV FLUSH SCH (08:15)
== END 2017-05-23 11:38 | disposition home or self-care (01) ==
LOC: NEPE 18:06 → NEDA 20:28 → NEPGCP 23:42
PROVIDERS: ADMIT Hospitalist; ATTEND Hospitalist
DX: N39.0 Urinary tract infection, site not specified (principal); B96.4 Proteus (mirabilis) (morganii) as the cause of diseases classified elsewhere; R53.1 Weakness; N28.9 Disorder of kidney and ureter, unspecified; E87.2 Acidosis; K59.00 Constipation, unspecified; Z91.81 History of falling; I10 Essential (primary) hypertension; E78.5 Hyperlipidemia, unspecified; J44.9 Chronic obstructive pulmonary disease, unspecified; E11.9 Type 2 diabetes mellitus without complications; F41.9 Anxiety disorder, unspecified; K21.9 Gastro-esophageal reflux disease without esophagitis; M19.90 Unspecified osteoarthritis, unspecified site; R94.31 Abnormal electrocardiogram [ECG] [EKG]; Z86.73 Personal history of transient ischemic attack (TIA), and cerebral infarction without residual deficits
CPT/HCPCS: 51702; 70450; 71010; 80048; 80053; 80307; 81001; 82948; 83605; 84443; 85025; 85610; 85730; 87077; 87086; 87186; 93005; 96374; 97162; 99285; G0378; G8987; G8988; J0696; J7030

== ENCOUNTER → 2018-04-05 | Outpatient (CLI) | payer MEDICARE ==
[~2018-04-05] VITALS: Ht 170.2 cm; Wt 113.0 kg
[~2018-04-05] MED LIST changes: -ABIL5TAB6 PO; -ALBU6.7H INH; +ALBUAER3 INH; -ALDA25TA PO; +ALPR0.5T3 PO; -ALPR1 PO; +AMLO5TAB2 PO; +ASPI81TA23 PO; -ASPI81TA82 PO; -ATOR40TA49 PO; +CHLORHEXIDINE GLUCONATE 2 % 1 PACK (2 CLOTHS) TOPICAL PRN; +DAILTAB38 PO; +DULO1CAP2 PO; +FENO145T2 PO; -FISHOIL PO; +FLUT1INH7 INH; +FURO1TAB60 PO; -FURO1TAB93 PO; +GABA400C5 PO; -HYDR-2768 PO; -IRON325T2 PO; -KEPRA PO; +LACTATED RINGER'S 1000 ML IV PRN; +METOPROLOL TARTRATE 25 MG TAB PO PRN; -MONT10TA2 PO; -MULTI VITAMIN; -NAPR-573 PO; +PLAV75TA29 PO; +POTA-163 PO; +POVIDONE IODINE 5% (ANTISEPSIS KIT) 4 APPLICATIONS EACH NARE PRN; +PRED20 PO; -PRED5TAB PO; +PROPOFOL 200 MG/20 ML AMP IV ONE; +SODIUM CHLORID 0.9% 500 ML IV PRN; +SPIR50TA PO; -SPIRCAP INH; +TOPA50TA7 PO; -VENL75 PO; -ZITH500T PO
--- NOTE | 2018-04-05 11:15 | PD.HP.UP ---
H&P Update Note The Pre-Admit History and Physical Examination regarding the above named patient was reviewed (including, but not limited to, vital signs, heart, lungs, co-morbid conditions), and upon re-examination it is noted that: the patient's condition has not significantly changed since the last examination. Carlos Galicia MD April 05, 2018 11:15
[2018-04-05 12:25] VITALS: TEMP 96.7
[2018-04-05 12:38] VITALS: BP 142/84; PULSE 77; RESP 18; O2SAT 97
--- NOTE | 2018-04-17 23:46 | MR ---
cc: Carlos Galicia MD [facility], DATE: 04/05/2018 PREOPERATIVE DIAGNOSES: 1. History of colonic polyps. 2. Colon cancer screening. PROCEDURE: Colonoscopy to cecum. POSTOPERATIVE DIAGNOSES: 1. Normal cecum, ileocecal valve. 2. Diverticular disease, rectosigmoid and left colon. 3. History of colonic polyps. SURGEON: Carlos Galicia MD DESCRIPTION OF PROCEDURE: The patient was placed in the left lateral decubitus position. After adequate anesthesia sedation and rectal exam confirmed the emptiness of the rectal vault, A Pentax colonoscope was introduced into the rectum and advanced easily under direct vision into the proximal colon until the cecum was identified. The ileocecal valve was normal. There were no vascular abnormalities noted in the cecum. Colonoscope was then gradually withdrawn, visualizing mucosal surface of the distal colon. No polyps were seen. Diverticular disease was minimal, but noted in the rectosigmoid. No luminal narrowing or obstruction. No inflammatory changes were seen. No polyps were noted in the rectosigmoid or into the rectal vault. Internal hemorrhoids were fairly benign in appearance. The patient tolerated the procedure quite well and was brought to the recovery room in stable condition. Carlos Galicia MD [facility]/ , 11:12 PM , 11:45 PM
== END ==
LOC: HSDC 09:27
PROVIDERS: ATTEND Colon & Rectal Surgery
DX: Z12.11 Encounter for screening for malignant neoplasm of colon (principal); Z86.010 Personal history of colon polyps; K57.90 Diverticulosis of intestine, part unspecified, without perforation or abscess without bleeding
CPT/HCPCS: 00812; 45378; J7120